=== PATIENT | male | born 1995 | race Caucasian/White ===

== ENCOUNTER 2018-01-13 18:15 | Emergency (ER) | payer BC, OTHER ==
[2018-01-13 18:31] VITALS: BP 127/68
[2018-01-13] MEDS ORDERED: Fluorescein Sod TOPICAL 0.6* 0.6 MG TEST OPHTHALMIC ONE (18:32)
--- NOTE | 2018-01-13 18:41 | UC ---
Eye Complaint HPI - HPI Summary HPI Summary: C/O swelling around the right eye. No pain, just minimal itching. Vision ok. - History of Current Complaint Chief Complaint: UCEye Stated Complaint: EYE IRRITATION Time Seen by Provider: 01/13/18 18:31 Hx Obtained From: Patient Onset/Duration: Sudden Onset, Lasting Hours - 2, Worse Since - onset Timing: Constant Severity Initially: Mild Severity Currently: Moderate Pain Intensity: 0 Location of Injury: Other - no injury known Aggravating Factor(s): Nothing Alleviating Factor(s): Nothing Associated Signs And Symptoms: Positive: Swelling. Negative: Photophobia, Drainage (Clear), Drainage (Purulent), Vision Impairment Bilateral, Vision Impairment Right, Vision Impairment Left, Fever - Allergies/Home Medications Allergies/Adverse Reactions: Allergies Allergy/AdvReac Type Severity Reaction Status Date / Time No Known Allergies Allergy Verified 01/13/18 18:28 Home Medications: Home Medications diphenhydrAMINE HCl [Benadryl Allergy] 75 mg PO Q12H 01/13/18 [History Confirmed 01/13/18] PMH/Surg Hx/FS Hx/Imm Hx Previously Healthy: Yes - Surgical History Surgical History: None - Family History Known Family History: Positive: Hypertension Negative: Diabetes - Social History Occupation: Employed Full-time Lives: With Family Alcohol Use: None Substance Use Type: None Smoking Status (MU): Heavy Every Day Tobacco Smoker Type: Cigarettes, Smokeless Tobacco Amount Used/How Often: 1/2 PPD Have You Smoked in the Last Year: Yes Household Exposure Type: Cigarettes Review of Systems Eyes: Eye Redness - around the right eyelids with the swelling. Is Patient Immunocompromised?: No All Other Systems Reviewed And Are Negative: Yes Physical Exam Triage Information Reviewed: Yes Appearance: Well-Appearing, No Pain Distress, Well-Nourished Vital Signs: Initial Vital Signs Temp 98.4 F 01/13/18 18:24 Pulse 74 01/13/18 18:24 Resp 14 01/13/18 18:24 BP 127/68 01/13/18 18:24 Pulse Ox 100 01/13/18 18:24 Vital Signs Reviewed: Yes Eyes: Positive: Conjunctiva Clear, Other: - Swelling with redness but no tenderness bilateral ENT: Positive: Pharynx normal, TMs normal Neck exam: Normal Respiratory Exam: Normal Cardiovascular Exam: Normal Musculoskeletal Exam: Normal Neurological Exam: Normal Psychological Exam: Normal Skin: Positive: Other - redness from above the right eye, laterally, from a pimple, extending down onto the external eye. Eye Complaint Course/Dx - Differential Dx/Diagnosis Differential Diagnosis/HQI/PQRI: Periorbital Cellulitis, Orbital Cellulitis, Uveitis Provider Diagnoses: Periorbital cellulitis Discharge - Sign-Out/Discharge Documenting (check all that apply): Discharge/Admit/Transfer - Discharge Plan Condition: Stable Disposition: HOME Prescriptions: Cephalexin CAP* [Keflex 500 CAP*] 500 mg PO QID #28 cap Patient Education Materials: Periorbital Cellulitis in Adults (ED), Cephalexin (By mouth) Referrals: Wendi Monotya GRISTMILL OPERATOR [Primary Care Provider] - Additional Instructions: If it is not improving, you will need to go to the ER. - Billing Disposition and Condition Condition: STABLE Disposition: Home Images Head: 1 - Redness with swelling. 2 - Pimple redness, swelling
[2018-01-13] MEDS ORDERED: Cephalexin CAP* 500 MG PO ONE (18:55)
== END 2018-01-13 19:14 | disposition home or self-care (01) ==
LOC: UCCORT 18:15
DX: L03.213 Periorbital cellulitis (principal); F17.210 Nicotine dependence, cigarettes, uncomplicated
CPT/HCPCS: 99202; A9270-GY; G0463